=== PATIENT | female | born 1950 | race Caucasian/White ===

== ENCOUNTER 2019-12-21 07:35 | Day surgery (SDC) | payer MEDICARE, BC ==
[~2019-12-21 07:35] MED LIST: Lactated Ringers 1,000 ML IV SCH; Sodium Chloride 0.9% 10 ML Syringe FLUSH PRN
[2019-12-21] MEDS ORDERED: Propofol 200 MG/20 ML SDV IV ONE (07:36)
--- NOTE | 2019-12-21 09:02 | PCM.OPNOTE ---
- General Post-Op/Procedure Note Date of Surgery/Procedure: 12/21/19 Operative Procedure(s): c scope Findings: normal exam Pre Op Diagnosis: + cologuard test Post-Op Diagnosis: nl study Anesthesia Technique: ANTONIO Primary Surgeon: Robert Good Anesthesia Provider: Kamaljit Lacy Pathology: none Complications: None Condition: Good Free Text/Narrative:: see dictation
--- NOTE | 2019-12-22 07:39 | OR ---
DATE OF OPERATION: 12/21/2019 SURGEON: Robert Good MD PROCEDURE PERFORMED: Colonoscopy. PREOPERATIVE DIAGNOSIS: Positive Cologuard test. POSTOPERATIVE DIAGNOSIS: Normal exam. PROCEDURE PERFORMED: Colonoscopy. INDICATIONS FOR PROCEDURE: This is a 69-year-old white female referred with a recent finding of a positive test result on a Cologuard exam. She was offered and accepted colonoscopy. DESCRIPTION OF OPERATION: After an excellent IV sedation was administered, digital rectal exam was performed. No marked abnormality was noted. Flexible colonoscope was inserted and advanced to the cecum without difficulty. The prep was excellent. The following findings were noted: Ascending colon, unremarkable. Transverse colon, unremarkable. Descending colon, unremarkable. Sigmoid and rectum, unremarkable. The colon was deflated as the scope was removed. The patient tolerated the procedure well, was taken to recovery room in good condition. RECOMMENDATIONS: Repeat colonoscopy in 10 years. /[id number] /SAMRA
== END 2019-12-21 10:41 | disposition home or self-care (01) ==
LOC: FB.SDS 07:35
PROVIDERS: ATTEND Surgery
DX: R19.5 Other fecal abnormalities (principal); I10 Essential (primary) hypertension; Z79.899 Other long term (current) drug therapy
CPT/HCPCS: 00812; 45378; J2704; J7120